=== PATIENT | male | born 1960 | race Caucasian/White ===

== ENCOUNTER 2020-02-28 09:12 | Day surgery (SDC) | payer MEDICAID, SELFPAY ==
[2020-02-28 09:36] VITALS: BP 126/69; PULSE 54; RESP 20; TEMP 36.3; O2SAT 99
[2020-02-28] MEDS: sodium chloride 0.9% 1,000 ML 30 ML IV (09:39)
--- NOTE | 2020-02-28 09:47 | ANES.PREANE2 ---
Pre-Anesthetic Assessment Pre-Anesthetic Assessment: Height/Weight: Height 1.57 m Weight 54.885 kg Temp Pulse Resp BP Pulse Ox 97.4 F L 54 L 20 H 126/69 99 02/28/20 09:36 02/28/20 09:36 02/28/20 09:36 02/28/20 09:36 02/28/20 09:36 Preop Diagnosis: t Proposed Procedure: Operation Date: 02/28/20 10:00 Proposed Procedures p EGD 35884 R13.10(Not Applicable) - Nestor Salmeron MD Familial anesthetic complications: None Was Beta Artemio taken within 24 hours: N/A Last intake: Intake Last Liquid Date 02/27/20 Last Liquid Time 22:30 Last Solid Date 02/27/20 Last Solid Time 18:00 Social: Social History: Tobacco and No alcohol Exam: Pre-Anes Outpt Exam: alert, oriented x 3, clear to auscultation bilaterally and regular rate & rhythm Airway: Cervical ROM: WNL MP: 3 Dentition: Other (edentulous) Additional comments: full hayden Pulmonary: Pulmonary: Asthma Comments: patient took his inhalers this morning GI: GI: GERD Comments: dysphagia Anesthetic Plan: ASA status: 2 Anesthesia: MAC Risk of > 500 ml blood loss (7ml/kg in children): No Meds/Allergies Current Medications: Current Medications Generic Name Dose Route Start Last Admin Trade Name Freq PRN Reason Stop Dose Admin Sodium Chloride 1,000 mls @ 30 ml s/hr 02/28/20 09:30 02/28/20 09:39 Sodium Chloride 0.9% IV 30 mls/hr .Q24H DAVID Administration PFSH Anesthesia PFSH: Social History (Updated 02/24/20 @ 15:08 by KRISTEN Yuen) Smoking and tobacco status: current every day smoker Alcohol intake: former Adopted: No service: No History of recent travel: No Current gender identity: Male Data Anesthesia Cardiac Studies: No Data to Display
--- NOTE | 2020-02-28 10:26 | W.PM.OPSUD ---
Surgery/Procedure H&P Update DATE OF PROCEDURE: February 28, 2020 DATE H&P PERFORMED: 02/24/20 PREOP DIAGNOSIS: t PLANNED PROCEDURE: Operation Date: 02/28/20 10:00 Proposed Procedures p EGD 20897 R13.10(Not Applicable) - Nestor Salmeron MD
--- NOTE | 2020-02-28 10:31 | ANE.PACU2 ---
Inpatient post-anesthesia follow up: Airway intact: Yes Vital signs: Temperature 97.4 F Pulse Rate 54 Respiratory Rate 20 Blood Pressure 126/69 Pulse Oximetry 99 Oxygen Delivery Me thod Room Air Oxygen Flow Rate Fraction of Inspir ed Oxygen Hydration adequate: Yes Nausea and vomiting: No Pain level: 1 Mental status: Baseline
[2020-02-28 10:34] VITALS: BP 126/69; PULSE 69; RESP 16; TEMP 36.8; O2SAT 99
[2020-02-28 10:40] VITALS: BP 105/63; PULSE 68; RESP 18; O2SAT 99
[2020-03-02 05:40] LABS: H. Pylori / CLO Test Negative
== END 2020-02-28 10:59 | disposition home or self-care (01) ==
PROVIDERS: PCP Internal Medicine; Visit Provider Internal Medicine
PROC: 0DJ08ZZ Inspection of Upper Intestinal Tract, Via Natural or Artificial Opening Endoscopic (ICD-10-PCS; CPT 43235; principal; 2020-02-28 10:00)
DX: R13.10 Dysphagia, unspecified (principal); K29.50 Unspecified chronic gastritis without bleeding; K44.9 Diaphragmatic hernia without obstruction or gangrene; K21.9 Gastro-esophageal reflux disease without esophagitis; F17.210 Nicotine dependence, cigarettes, uncomplicated
CPT/HCPCS: 12345; 43239; 87077; J2704; J7030

== ENCOUNTER → 2024-01-02 13:00 | Outpatient (BNVA) | payer MEDICARE, MEDICAID, SELFPAY | PROVIDERS: PCP Nurse Practitioner; Visit Provider Nurse Practitioner Family | DX: L30.9 Dermatitis, unspecified (principal); L57.0 Actinic keratosis; L57.8 Other skin changes due to chronic exposure to nonionizing radiation; D22.5 Melanocytic nevi of trunk; L81.4 Other melanin hyperpigmentation | CPT/HCPCS: 11102; 17000; 99203 ==

== ENCOUNTER → 2024-04-26 08:15 | Outpatient (BNVA) | payer MEDICARE, MEDICAID, SELFPAY | PROVIDERS: PCP Nurse Practitioner; Visit Provider Nurse Practitioner Family | DX: Q82.8 Other specified congenital malformations of skin (principal); L23.9 Allergic contact dermatitis, unspecified cause; L72.0 Epidermal cyst | CPT/HCPCS: 99213 ==

== ENCOUNTER 2024-07-01 17:04 | Inpatient (IN) | payer MEDICARE, MEDICAID, SELFPAY ==
[2024-07-01] VITALS (57 sets, daily range): BP systolic 97–165; BP diastolic 58–92; PULSE 93–122; RESP 16–34; TEMP 37.7–38.1; O2SAT 91–98; BMI 21.9; BMI 23.1
--- NOTE | 2024-07-01 17:14 | ECG_ITS ---
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 Measurements Intervals [place] Rate: 119 P: 71 MA: 170 QRS: 72 QRSD: 109 T: 10 QT: 324 QTc: 456 Interpretive Statements SINUS TACHYCARDIA INCOMPLETE RIGHT BUNDLE BRANCH BLOCK [90+ ms QRS DURATION, TERMINAL R IN V1/V2, 40+ ms S IN I/aVL/V4/V5/V6] ABNORMAL RHYTHM ECG No previous ECG available for comparison Electronically Signed On 07-01-2024 19:26:39 [employer] DEVEL[employer] by Pavel Prescott M.D. [id number]
--- NOTE | 2024-07-01 17:14 | XRR_ITS ---
PROCEDURE INFORMATION: Exam: XR Chest Exam date and time: 07/01/2024 5:29 PM Age: 63 years old Clinical indication: Shortness of breath; Additional info: clarita LENZ TECHNIQUE: Imaging protocol: Radiologic exam of the chest. Views: 2 views. COMPARISON: No relevant prior studies available. FINDINGS: Lungs: No focal consolidation. Pleural spaces: No evidence of pneumothorax. No evidence of pleural effusion. Heart/Mediastinum: Cardiomediastinal silhouette is within normal limits. Bones/joints: No evidence of acute osseous abnormality. XR/XR chest 2V* [id number] IMPRESSION: 1. No acute cardiopulmonary abnormality.
--- NOTE | 2024-07-01 17:19 | ED_ITS ---
HPI - COVID 2 General: Chief Complaint: COVID symptoms Stated Complaint: Covid positive shortness of breath Time Seen by Provider: 07/01/24 17:05 Source: patient and EMS Mode of arrival: EMS Limitations: no limitations Triage information: Has fever, cough or shortness of breath . Exposure to COVID + person last 14 days History of Present Illness: Patient is a 63-year-old male presenting to the emergency department by ambulance for shortness of breath worsening throughout the day. Last night states he was started have symptoms but this morning his shortness of breath worsened, he took a home COVID test along with his and both of them tested positive. He reports to me history of COPD and asthma, has been using nebulized budesonide treatments with not much relief throughout the day. He also is noting that he is starting to have gradually worsening central, burning chest pain that does not radiate. He does not report to me any cardiac history. He is febrile at time of examination, and tachycardic. EMS stated that he was 85% SpO2 on room air on their arrival, he was placed on 4 L and was brought up to 95. He is denying any peripheral edema, recent surgery, history of blood clots, nausea/vomiting/diarrhea, or other symptoms. He is noting some chills at this time as well as a nonproductive cough. He does not normally use oxygen at home. MD complaint: known COVID positive Prior covid testing: yes, results known Prior testing date: 07/01/24 COVID 19 common symptoms: positive chills, non-productive cough and dyspnea; negative fever(s), fatigue, body aches, headache(s), throat pain, nausea, vomiting or diarrhea COVID 19 other sytmptoms: positive chest pain and requiring oxygen Onset (ago): day(s) Severity: moderate COVID Results: 2 Coronavirus (PCR) Positive (Negative) A 07/01/24 17:31 Related Data Home Medications Medication Instructions Recorded Confirmed cholecalciferol (vitamin D3) 25 50 mcg PO DAILY 02/24/20 02/26/20 mcg (1,000 unit) capsule ipratropium 20 mcg-albuterol 100 2 puff inhalation DIRECTED PRN 02/24/20 02/26/20 mcg/actuation mist for inhalation Shortness Of Breath (Combivent Respimat) loratadine 10 mg capsule 10 mg PO DAILY 02/24/20 02/26/20 budesonide 0.5 mg/2 mL suspension 0.5 mg inhalation DAILY 02/26/20 02/26/20 for nebulization Previous Rx's Medication Instructions Recorded pantoprazole 40 mg tablet,delayed 40 mg PO BID #0 tabs 02/28/20 release Allergies Allergy/AdvReac Type Severity Reaction Status Date / Time No Known Allergies Allergy Verified 02/24/20 15:00 Review of Systems 2 General: Reports: 10 or more systems reviewed and unremarkable except in HPI and below Const: Reports: chills; Denies: fever(s), body aches or fatigue Eyes: Denies: change in vision ENMT: Denies: throat pain, ear or mastoid pain or nasal discharge Card: Reports: chest pain and dyspnea on exertion; Denies: palpitations, edema, orthopnea or leg pain with exertion Resp: Reports: dyspnea, non-productive cough and wheezing; Denies: hemoptysis GI: Denies: abdominal pain, nausea, vomiting, diarrhea or constipation : Denies: flank pain, difficulty urinating, dysuria or urinary frequency Musc: Denies: neck pain, back pain or joint pain Skin/Breast: Denies: rash Neuro: Denies: headache(s), numbness in extremities or weakness in extremities PFSH ED 2 PFSH: Social History Smoking and tobacco/nicotine status: current every day tobacco/nicotine user Alcohol intake: former Adopted: No service: No Current gender identity: Male Physical Exam 2 Const: COMMON NORMALS: patient oriented x3 and no limitations GENERAL APPEARANCE: cooperative and well developed ORIENTATION/CONSCIOUSNESS: Yes awake HENMT: COMMON NORMALS: normocephalic, atraumatic and hearing grossly normal bilaterally HEAD & SCALP: normocephalic and atraumatic Eye: COMMON NORMALS: Equal, round and reactive pupils present, EOMs intact bilaterally and conjunctivae normal CONJUNCTIVA: Yes conjunctivae normal P UPIL: Yes Equal, round and reactive pupils present Neck/C-Spine: COMMON NORMALS: full ROM, supple and no JVD Chest: COMMONS NORMALS: normal palpation of entire chest wall Resp: COMMON NORMALS: No retractions and No use of accessory muscles EFFORT & INSPECTION: Yes able to speak in complete sentences, Yes symmetric chest movement, Yes tachypneic, Yes respiratory distress (Mild) and Yes Actively coughing non-productive AUSCULTATION: wheezes expiratory wheezes, inspiratory wheezes and throughout Cardio: COMMON NORMALS: no JVD, regular rhythm, No clicks present (Cardio), No murmurs present (Cardio) and No rub (Cardio) RATE: tachycardic RHYTHM: r egular rhythm GI: COMMON NORMALS: Normal to inspection, nondistended, normoactive bowel sounds present, Soft to palpation and non-tender AUSCULTATION: Yes normoactive bowel sounds PALPATION: Yes Soft to palpation RECTAL EXAM: Yes deferred Extremity: COMMON NORMALS: normal to inspection, full ROM, no calf tenderness and no pedal edema NARRATIVE EXTREMITY EXAM: Cap refill slightly greater than 3 seconds Neuro: COMMON NORMALS: patient oriented x3 Psych: COMMON NORMALS: mental status grossly normal and Normal thought process present THOUGHT PROCESS: Normal thought process present Skin: COMMON NORMALS: no rashes or lesions noted GENERAL SKIN EXAM: no rashes or lesions noted Course 2 ED course: PERC score of 3 Vital Signs: Vital signs: Vital Signs Temperature 100.5 F H 07/01/24 17:07 Pulse Rate 108 H 07/01/24 18:58 Respiratory Rate 18 07/01/24 18:58 Blood Pressure 105/58 07/01/24 18:58 Pulse Oximetry 93 07/01/24 18:58 Oxygen Delivery Me thod Nasal Cannula 07/01/24 18:58 Oxygen Flow Rate 2 07/01/24 18:58 MDM - COVID Medical Decision Making Patient has a history of COPD, does not require home O2. He is COVID-positive at home as well as here in the emergency department. Arrived with EMS, then reporting he was hypoxic in the low to mid 80s on room air, he has been on 3 to 4 L since. He has been tachycardic throughout ED stay, however he reports to me he has done numerous breathing treatments today and his tachycardia could be secondary to the steroids. However we ruled out pulmonary embolus with CTA, potentially may be some developing bronchopneumonia. His troponin and EKG, aside from the sinus tachycardia, was unremarkable. Rest of his blood work unremarkable including nondiagnostic BNP. He did not seem fluid overloaded on physical exam. Spoke with Dr. Santana who agrees to accept the patient for observation, discussed this plan with patient who agrees and all other questions and concerns were addressed. Dr. Ta putting in admit orders at this time. Patient currently on 2 L nasal cannula 93% SpO2. Lab Data 07/01/24 17:33 07/01/24 17:33 Radiology Impressions Chest X-Ray 07/01/24 17:14 IMPRESSION: 1. No acute cardiopulmonary abnormality. Chest CTA 07/01/24 17:46 IMPRESSION: 1. No evidence of central PE or acute aortic abnormality. There is hypodensity within a left upper lobe subsegmental branch, which may be secondary to motion degradation. Subsegmental PE would be difficult to exclude in this region. If warranted, follow-up exam in 24-48 hours may be helpful to reassess. 2. Right middle and bilateral lower lobe mucous plugging with possible aspiration pneumonitis or developing bronchopneumonia in the right middle lobe. 3. Mild wall thickening of the mid-distal esophagus compatible with esophagitis in the proper clinical setting. Consider follow-up outpatient GI evaluation. Laboratory Results WBC 8.55 10^3/uL (3.29-11.43) 07/01/24 17:33 RBC 5.05 10^6/uL (3.85-5.65) 07/01/24 17:33 Hgb 16.00 g/dL (11.27-16.99) 07/01/24 17:33 Hct 46.5 % (37-53) 07/01/24 17:33 MCV 92.1 fl (82-101) 07/01/24 17:33 MCH 31.7 pg (27-33) 07/01/24 17:33 MCHC 34.4 g/dL (30-55) 07/01/24 17:33 RDW 12.5 % (12.1-15.1) 07/01/24 17:33 Plt Count 157 10^3/cmm (157-399) 07/01/24 17:33 MPV 10.3 fL (7.4-10.4) 07/01/24 17:33 Neut % (Auto) 88.0 % 07/01/24 17:33 Lymph % (Auto) 6.9 % 07/01/24 17:33 Garvin % (Auto) 4.7 % 07/01/24 17:33 Eos % (Auto) 0.1 % 07/01/24 17:33 Baso % (Auto) 0.1 % 07/01/24 17:33 Neut # (Auto) 7.52 10^3/uL (1.8-7.7) 07/01/24 17:33 Lymph # (Auto) 0.6 10^3/uL (0.8-4.8) L 07/01/24 17:33 Garvin # (Auto) 0.4 10^3/uL (0.2-0.9) 07/01/24 17:33 Eos # (Auto) 0.0 10^3/uL (0.0-0.8) 07/01/24 17:33 Baso # (Auto) 0.0 10^3/uL (0.0-0.1) 07/01/24 17:33 Nucleated RBC % (auto) 0 % 07/01/24 17:33 Nucleated RBCs # 0.0 /100WBC 07/01/24 17:33 Specimen Type Arterial 07/01/24 17:37 Sample Site Brachial, right 07/01/24 17:37 ABG pH 7.42 (7.35-7.45) 07/01/24 17:37 ABG pCO2 34.2 mmHg (35-45) L 07/01/24 17:37 ABG pO2 50.3 mmHg (80.0-100.0) L 07/01/24 17:37 ABG PO2/FiO2 Ratio 239 07/01/24 17:37 ABG HCO3 22.0 mmol/L (22-26) 07/01/24 17:37 ABG O2 Saturation 86.9 07/01/24 17:37 ABG Base Excess -1.8 mmol/L (-2.0-2.0) 07/01/24 17:37 Martin Test N/a 07/01/24 17:37 A-a O2 Gradient 7.5 mmHg (5-10) 07/01/24 17:37 Hematocrit 42.5 % (42-52) 07/01/24 17:37 Hgb O2 Saturation 85.0 % (95-100) L 07/01/24 17:37 Carboxyhemoglobin 1.2 %THgb (0.4-20.1) 07/01/24 17:37 Methemoglobin 0.9 % (0.4-1.5) 07/01/24 17:37 Total Hemoglobin 13.9 g/dL (14-18) L 07/01/24 17:37 Sodium 136.0 mmol/L (131-143) 07/01/24 17:37 Potassium 3.6 mmol/L (3.5-5.0) 07/01/24 17:37 Glucose 108.0 mg/dL (70-115) 07/01/24 17:37 Ionized Calcium 1.2 mmol/L (1.1-1.4) 07/01/24 17:37 O2 Delivery Device Room air 07/01/24 17:37 FiO2 21.0 % 07/01/24 17:37 Meteorological Observer ID Amh 07/01/24 17:37 Sodium 139 mmol/L (136-145) 07/01/24 17:33 Potassium 4.2 mmol/L (3.5-5.1) 07/01/24 17:33 Chloride 98 mmol/L (98-107) 07/01/24 17:33 Carbon Dioxide 24 mmol/L (22-29) 07/01/24 17:33 Anion Gap 21.2 (5-19) H 07/01/24 17:33 BUN 9 mg/dL (8-23) 07/01/24 17:33 Creatinine 0.7 mg/dL (0.7-1.2) 07/01/24 17:33 GFR Calculation 113.2 mL/min (90-130) 07/01/24 17:33 Glucose 107 mg/dL (65-115) 07/01/24 17:33 Calculated Osmolality 287 mOsm/kg (285-295) 07/01/24 17:33 Calcium 9.7 mg/dL (8.5-10.5) 07/01/24 17:33 Total Bilirubin 0.6 mg/dL (0.15-1.2) 07/01/24 17:33 AST 21 U/L (0-40) 07/01/24 17:33 ALT 22 U/L (0-41) 07/01/24 17:33 Alkaline Phosphatase 97 U/L (40-130) 07/01/24 17:33 Troponin T Baseline 9 ng/L (0-15) 07/01/24 17:33 NT-Pro-B Natriuret Pep 298 pg/mL (0-125) H 07/01/24 17:33 Total Protein 7.7 g/dL (6.6-8.7) 07/01/24 17:33 Albumin 4.9 g/dL (3.5-5.2) 07/01/24 17:33 Globulin 2.8 g/dL (1.3-4.6) 07/01/24 17:33 Coronavirus (PCR) Positive (Negative) A 07/01/24 17:31 Influenza A (PCR) Negative (Negative) 07/01/24 17:31 Influenza Type B (PCR) Negative (Negative) 07/01/24 17:31 RSV (PCR) Negative (Negative) 07/01/24 17:31 2 Coronavirus (PCR) Positive (Negative) A 07/01/24 17:31 All radiology interpretation(s) finalized by discharge EKG Data EKG 1: I personally reviewed and interpreted this EKG as follows: EKG interpretation date: 07/01/24 EKG interpretation time: 17:29 Prior EKG tracings: not available for review Interpretation: 1729: Sinus tachycardia. Rate 119. No ST segment elevation. 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
[2024-07-01] MEDS: acetaminophen 325 mg Tablet 650 MG PO (17:22)
[2024-07-01] MEDS: sodium chloride 0.9% 1,000 ML 999 ML IV (17:24)
[2024-07-01 17:41] LABS: Basophils % 0.1 %; Eosinophils % 0.1 %; Hematocrit 46.5 % (37-53); Lymphocytes # 0.6 10^3/uL (0.8-4.8); Lymphocytes % 6.9 %; Mean Corpuscular HGB Conc 34.4 g/dL (30-55); Mean Corpuscular Hemoglobin 31.7 pg (27-33); Mean Corpuscular Volume 92.1 fl (82-101); Mean Platelet Volume 10.3 fL (7.4-10.4); Monocytes # 0.4 10^3/uL (0.2-0.9); Monocytes % 4.7 %; Neutrophils # 7.52 10^3/uL (1.8-7.7); Nucleated Red Blood Cells % 0 %; Platelet Count 157 10^3/cmm (157-399); Red Blood Count 5.05 10^6/uL (3.85-5.65); Red Cell Distribution Width 12.5 % (12.1-15.1); White Blood Count 8.55 10^3/uL (3.29-11.43)
--- NOTE | 2024-07-01 17:46 | CTR_ITS ---
PROCEDURE INFORMATION: Exam: CTA Chest With Contrast Exam date and time: 07/01/2024 6:32 PM Age: 63 years old Clinical indication: Shortness of breath; Additional info: Tachy, SOB, covid + TECHNIQUE: Imaging protocol: Computed tomographic angiography of the chest with contrast. Exam focused on the arteries. 3D rendering (Not supervised by radiologist): MIP and/or 3D reconstructed images were created by the technologist. Radiation optimization: All CT scans at this facility use at least one of these dose optimization techniques: automated exposure control; mA and/or kV adjustment per patient size (includes targeted exams where dose is matched to clinical indication); or iterative reconstruction. Contrast material: OMNI 350; Contrast volume: 100 ml; Contrast route: INTRAVENOUS (IV); COMPARISON: CR (CHEST, ) 07/01/2024 5:29 PM RADIATION DOSE METRICS: Total DLP (mGy-cm): 208.74 FINDINGS: Pulmonary arteries: Evaluation for pulmonary thromboembolism is limited beyond the segmental level due to respiratory motion. No evidence of central PE. There is hypodensity within a left upper lobe subsegmental branch, which may be secondary to motion degradation. Subsegmental PE would be difficult to exclude in this region (image 70 of series 7). Aorta: No evidence of aneurysmal dilatation or dissection of the thoracic aorta. Thyroid: Grossly unremarkable. Lungs: No focal consolidation. Extensive mucous plugging of the right middle and both lower lobes. Mild ground-glass in the medial right middle lobe, nonspecific and can be seen with aspiration pneumonitis or developing bronchopneumonia. Pleural spaces: No evidence of pleural effusion. No pneumothorax. Heart: No cardiomegaly. No pericardial effusion. Mediastinal space: No evidence of mediastinal mass, fluid collection or hematoma. Mild wall thickening of the mid-distal esophagus. Lymph nodes: No mediastinal or hilar adenopathy. Bones/joints: No evidence of acute fracture or aggressive osseous lesion. Soft tissues: No evidence of fluid collection or hematoma in the superficial soft tissues. Other findings: No evidence of acute abnormality in the upper abdomen. CT/CT angio chest PE protcl [id number] IMPRESSION: 1. No evidence of central PE or acute aortic abnormality. There is hypodensity within a left upper lobe subsegmental branch, which may be secondary to motion degradation. Subsegmental PE would be difficult to exclude in this region. If warranted, follow-up exam in 24-48 hours may be helpful to reassess. 2. Right middle and bilateral lower lobe mucous plugging with possible aspiration pneumonitis or developing bronchopneumonia in the right middle lobe. 3. Mild wall thickening of the mid-distal esophagus compatible with esophagitis in the proper clinical setting. Consider follow-up outpatient GI evaluation.
[2024-07-01 17:48] LABS: ABG PCO2 34.2 mmHg (35-45); ABG PH Result 7.42 (7.35-7.45); Alveolar-Arterial Oxygen Gradi 7.5 mmHg (5-10); Arterial Blood Gas Hematocrit 42.5 % (42-52); Base Excess ABG -1.8 mmol/L (-2.0-2.0); Blood Gas Operator Identificat AMH; Blood Gas Sample Site Brachial, right; Blood Gas Sample Type Arterial; Carboxyhemoglobin 1.2 %THgb (0.4-20.1); Ionized Calcium Level - ABG 1.2 mmol/L (1.1-1.4); Methemoglobin 0.9 % (0.4-1.5); Oxygen Device ROOM AIR; Oxygen Saturation ABG 86.9; PO2 ABG 50.3 mmHg (80.0-100.0); PO2 FiO2 Ratio Arterial Blood 239; Potassium Level - ABG 3.6 mmol/L (3.5-5.0); Total Hemoglobin 13.9 g/dL (14-18)
[2024-07-01 18:01] LABS: Troponin(5th) Baseline 9 ng/L (0-15)
[2024-07-01 18:10] LABS: Alanine Aminotransferase 22 U/L (0-41); Albumin Level 4.9 g/dL (3.5-5.2); Alkaline Phosphatase 97 U/L (40-130); Anion Gap 21.2 (5-19); Aspartate Amino Transferase 21 U/L (0-40); Blood Urea Nitrogen 9 mg/dL (8-23); Calcium 9.7 mg/dL (8.5-10.5); Carbon Dioxide 24 mmol/L (22-29); Chloride 98 mmol/L (98-107); Creatinine Clr Calc Pharmacy 71.0057; Globulin 2.8 g/dL (1.3-4.6); Glomerular Filtration Rate 113.2 mL/min (90-130); Glucose 107 mg/dL (65-115); NT Pro B Type Natriuretic Pept 298 pg/mL (0-125); Osmolality Calculated 287 mOsm/kg (285-295); Potassium 4.2 mmol/L (3.5-5.1); Sodium 139 mmol/L (136-145); Total Bilirubin 0.6 mg/dL (0.15-1.2); Total Protein 7.7 g/dL (6.6-8.7)
[2024-07-01 18:17] LABS: Influenza A NEGATIVE (Negative); Influenza B NEGATIVE (Negative); Respiratory Syncytial Virus Ce NEGATIVE (Negative)
[2024-07-01 18:19] LABS: Covid PCR Positive (Negative)
[2024-07-01] MEDS: iohexol 350 mg/mL 500 mL Btl (per mL) IV (18:33)
--- NOTE | 2024-07-01 19:15 | P.HP_ITS ---
Providers/Chief Complaint 2 Primary Care Provider: LARRY May Chief Complaint: Covid positive shortness of breath History of Present Illness Mahamed Stone is a 63 year old male with a past medical history significant for tobacco use disorder and asthma/COPD who presents to the emergency room with shortness of breath x 2 days. Patient reports symptoms started last night and worsened into today. He endorses associated cough, described as nonproductive. Exertion worsens symptoms and rest improves shortness of breath. He tried his home Combivent and budesonide without significant improvement in symptomatology. Reports home COVID test was positive. Denies prior known history of COVID infections. Reports his spouse at home is having similar symptoms but to a lesser degree. Per EMS report, patient was found to be hypoxic on room air. Patient denies prior home oxygen needs. In the emergency department, patient was found to be COVID-positive. He was found to be tachycardic and febrile. He is found to require oxygen. CT PE was negative for pulmonary embolism, but but revealed findings concerning for aspiration pneumonitis versus developing bronchopneumonia in right lung. Review of Systems 2 Narrative: A complete review of systems was obtained and is negative except as stated in HPI. Medications/Allergies Home Medications Medication Instructions Recorded Confirmed Last Taken Type cholecalciferol (vitamin D3) 25 50 mcg PO DAILY 02/24/20 02/26/20 02/27/20 History mcg (1,000 unit) capsule ipratropium 20 mcg-albuterol 100 2 puff inhalation DIRECTED PRN 02/24/20 02/26/20 02/28/20 History mcg/actuation mist for inhalation Shortness Of Breath (Combivent Respimat) loratadine 10 mg capsule 10 mg PO DAILY 02/24/20 02/26/20 02/27/20 History budesonide 0.5 mg/2 mL suspension 0.5 mg inhalation DAILY 02/26/20 02/26/20 02/28/20 History for nebulization pantoprazole 40 mg tablet,delayed 40 mg PO BID #0 tabs 02/28/20 02/26/20 02/27/20 Rx release Allergies Allergy/AdvReac Type Severity Reaction Status Date / Time No Known Allergies Allergy Verified 02/24/20 15:00 PFSH Acute 2 PFSH: Medical History Odynophagia Surgical History (Updated 07/01/24 @ 22:56 by Domingo Santana MD) History of esophagogastroduodenoscopy (EGD) Social History Smoking and tobacco/nicotine status: current every day tobacco/nicotine user Alcohol intake: former Adopted: No service: No Current gender identity: Male Vitals/I&O/Wt Last Vital Signs Temp 100.5 F H 07/01/24 17:07 Pulse 108 H 07/01/24 18:58 Resp 18 07/01/24 18:58 BP 105/58 07/01/24 18:58 Pulse Ox 93 07/01/24 18:58 O2 Del Method Nasal Cannula 07/01/24 18:58 O2 Flow Rate 2 07/01/24 18:58 Weight last 48 hrs Weight 54.431 kg Physical Exam 2 Narrative: General: Patient is awake. Appears fatigued but pleasant. Febrile. Head: Normocephalic. Atraumatic. EOM intact. Dry mucous membranes. Neck: No JVD. Cardiovascular: Regular rhythm. No gallops. No murmurs. Tachycardic Lungs: Moderate air movement throughout bilateral lung tineo. Very faint end expiratory wheezing. Skin: No jaundice. No rashes. Abdomen: Normal bowel sounds, abdomen soft and nontender. Genito Urinary: Genital exam not performed since complaints not related. Rectal: Rectal exam not performed since no symptoms indicated blood loss. Extremities: No cyanosis or clubbing. Musculoskeletal: No swollen or erythematous joints. Neurological: Moves all 4 extremities. No myoclonus. Data 07/01/24 17:33 07/01/24 17:33 A&P Assessment and plan (1) Hypoxia: Acute hypoxic respiratory insufficiency Supplemental oxygen support for SpO2 goal of 90 to 96% Treat underlying COVID-19 and pneumonia Treat underlying reactive airway flare Encourage pulmonary toilet Supportive care (2) COVID-19: Take appropriate precautions Start dexamethasone Remdesivir ordered (3) Pneumonia: Right sided community-acquired bronchopneumonia Check procal and CRP Check bacterial antigens Start ceftriaxone and azithromycin (4) COPD (chronic obstructive pulmonary disease): Asthma/COPD overlap syndrome with acute exacerbation Starting systemic steroids as noted above Budesonide nebs Scheduled DuoNebs (5) Tobacco abuse: Patient would benefit from tobacco cessation Plan DVT prophylaxis: Lovenox CODE STATUS: Full code Attestations 2 Medical Necessity Statement*: Patient presents with respiratory symptoms, found to have COVID-19 infection and suspected community-acquired pneumonia complicated by acute COPD exacerbation and hypoxia with expected hospitalization not to cross 2 midnights for IV steroids, IV antibiotics, breathing treatments and supportive care. Coding Level of Care Code Acute Code for [facility] Diagnoses Hypoxia R09.02 COVID-19 U07.1 Pneumonia J18.9 COPD (chronic obstructive pulmonary disease) J44.9 Tobacco abuse Z72.0
[2024-07-01 20:08] LABS: Troponin 5 2HR 10.34 ng/L (0-15); Troponin 5 2HR Delta 1.34 ABS# (0-10)
[2024-07-02] VITALS (14 sets, daily range): BP systolic 103–119; BP diastolic 59–81; PULSE 79–119; RESP 14–22; TEMP 36.8–37.6; O2SAT 94–97; BMI 23.0
[2024-07-02] MEDS: AZITHROMYCIN ADD-Vantage 500 MG in 0.9% NaCl ADD-Vantage 250 ML 250 MG IV (00:09)
[2024-07-02] MEDS: enoxaparin 40 mg/0.4 mL Syringe SUBCUT ×2 (00:10→22:56)
[2024-07-02] MEDS: cefTRIAXone 1,000 mg SDV 1000 MG IVP ×2 (00:10→22:57)
[2024-07-02] MEDS: morphine 4 mg/mL SDV 1 mL 2 MG IVP (00:19)
[2024-07-02 00:40] LABS: Troponin 5 6HR 12.57 ng/L (0-15); Troponin 5 6HR Delta 3.57 ng/L (0-12)
[2024-07-02 00:49] LABS: Procalcitonin 0.14 ng/mL (0-0.5)
[2024-07-02] MEDS: remdesivir 200 MG in sodium chloride 0.9% (100 ml) 60 ML 100 MG IV ×2 (01:03→01:24)
--- NOTE | 2024-07-02 01:26 | PC.NURSE ---
THIS RN HAD TO OVERRIDE 100ML SODIUM CHLORIDE AND 200MG REMDESVIR TO FULFILL THE MD ORDER FOR INITIAL DOSE. PT ONLY RECIEVED ONE DOSE OF 200MG REMDESIVIR.
[2024-07-02] MEDS: ipratropium-albuterol 3 mL Neb INHALATION ×2 (03:14→08:57)
[2024-07-02 06:12] LABS: Basophils % 0.2 %; Hematocrit 38.3 % (37-53); Lymphocytes # 0.6 10^3/uL (0.8-4.8); Lymphocytes % 5.4 %; Mean Corpuscular HGB Conc 34.7 g/dL (30-55); Mean Corpuscular Volume 92.3 fl (82-101); Mean Platelet Volume 9.9 fL (7.4-10.4); Monocytes # 0.7 10^3/uL (0.2-0.9); Monocytes % 6.3 %; Neutrophils # 9.65 10^3/uL (1.8-7.7); Neutrophils % 87.8 %; Nucleated Red Blood Cells % 0 %; Platelet Count 136 10^3/cmm (157-399); Red Blood Count 4.15 10^6/uL (3.85-5.65); Red Cell Distribution Width 12.5 % (12.1-15.1); White Blood Count 10.98 10^3/uL (3.29-11.43)
[2024-07-02 06:36] LABS: Alanine Aminotransferase 18 U/L (0-41); Albumin Level 3.8 g/dL (3.5-5.2); Alkaline Phosphatase 75 U/L (40-130); Anion Gap 14.7 (5-19); Aspartate Amino Transferase 21 U/L (0-40); Blood Urea Nitrogen 9 mg/dL (8-23); Calcium 8.7 mg/dL (8.5-10.5); Carbon Dioxide 23 mmol/L (22-29); Chloride 106 mmol/L (98-107); Creatinine Clr Calc Pharmacy 72.4234; Globulin 2.5 g/dL (1.3-4.6); Glucose 108 mg/dL (65-115); Magnesium 1.5 mg/dL (1.7-2.3); Osmolality Calculated 289 mOsm/kg (285-295); Potassium 3.7 mmol/L (3.5-5.1); Sodium 140 mmol/L (136-145); Total Bilirubin 0.3 mg/dL (0.15-1.2); Total Protein 6.3 g/dL (6.6-8.7)
[2024-07-02] MEDS: dexamethasone 10 mg/mL INJ 6 MG IVP (08:50)
[2024-07-02] MEDS: budesonide 0.5 mg/2 mL Neb INHALATION ×2 (08:57→19:39)
--- NOTE | 2024-07-02 10:23 | PC.CHAP ---
Pastoral Care Encounter/Spiritual Assessment Type of Contact [] Declined manager operations visit [] Patient/Family/Request visit [] Outpatient visit [] Follow-up visit [] Physician referral [] Code/Alert [] Routine visit [] Staff referral [] Actively dying [] Patient sleeping [] Family support [] [] Out of room [] Palliative care [] [] Receiving care in room [] Pre-surgical visit [] Trauma [] Long length of stay [] ICU visit [x] Other:Contact precautions. No visit. Relational/Emotional Strength [] Patient feels connected with others/family/visitors/staff [] Distress [] Loneliness/isolation [] Abandonment Spirituality of Patient [] Person of [place] [] Attends Oriental Orthodox of their [place] [] Believes in Prayer [] Reads Bible or Evangelical materials [] There are Spiritual issues to be addressed Cigarette Carton Sealer Interventions [] Prayer [] Active listening [] Non-anxious presence [] Spiritual/emotional support [] Crisis/trauma care [] Spiritual counseling [] Bereavement support [] Provided bereavement packet [] Provided Bible/devotional materials [] Provided toy/stuffed animal, coloring book to patient or family member [] Provided Communion [] Anointing/[place] [] Salvation [] Completed spiritual assessment [] Other: Impact on Illness or Injury [] Angry [] Fearful [] Anxious [] Often cries [] Exhaustion [] Unable to work [] Unable to attend sikhism [] Unable to walk/stand [] Unable to read [] Unable to drive [] Unable to eat/drink [] Unable to sleep [] Unable to be with family [] Patient intubated [] Other: Summary Time spent with patient
--- NOTE | 2024-07-02 14:31 | P.PN_ITS ---
Subjective 2 Subjective: Admitted overnight. H&P labs appreciated. Vitals/I&O/Wt Last Vital Signs Temp 99.6 F 07/02/24 11:48 Pulse 101 H 07/02/24 11:48 Resp 17 07/02/24 11:48 BP 103/59 07/02/24 11:48 Pulse Ox 96 07/02/24 11:48 O2 Del Method Nasal Cannula 07/02/24 11:48 O2 Flow Rate 3 07/02/24 08:55 07/01/24 07/02/24 07/02/24 22:59 06:59 14:59 Intake Total 1385 / 1385 480 / 480 Balance 1385 / 1385 480 / 480 Weight last 48 hrs Weight 57.153 kg Weight 57.289 kg Weight 54.431 kg Physical Exam 2 Narrative: General: Patient is awake. Appears fatigued but pleasant. Febrile. Head: Normocephalic. Atraumatic. EOM intact. Dry mucous membranes. Neck: No JVD. Cardiovascular: Regular rhythm. No gallops. No murmurs. Tachycardic Lungs: Moderate air movement throughout bilateral lung tineo. Very faint end expiratory wheezing. Skin: No jaundice. No rashes. Abdomen: Normal bowel sounds, abdomen soft and nontender. Genito Urinary: Genital exam not performed since complaints not related. Rectal: Rectal exam not performed since no symptoms indicated blood loss. Extremities: No cyanosis or clubbing. Musculoskeletal: No swollen or erythematous joints. Neurological: Moves all 4 extremities. No myoclonus. Data 07/02/24 06:00 07/02/24 06:00 Micro: Microbiology 07/02/24 06:32 Bacterial Antigens - Final Urine,Clean Catch A&P Assessment and plan (1) Hypoxia: Acute hypoxic respiratory insufficiency in setting of COVID-19 pneumonia leading to COPD exacerbation. Oxygen supplementation keeping saturation over 90%. Supportive care. (2) COVID-19: Hypoxia secondary to COVID-19 pneumonia: Mild to moderate disease. Oxygen supplementation keeping saturation over 90 %. Dexamethasone 6 mg daily. Remdesivir to finish a 5-day course. Ipratropium, Xopenex every 6 hour, budesonide twice daily Pulmonary toilet with incentive spirometry flutter valve. We will monitor inflammatory markers including CRP every 48 hours. CTA negative for PE. Check sputum culture. Procalcitonin negative, urine bacterial antigen negative. Check blood cultures. (3) Pneumonia: Concern for right-sided possible bronchopneumonia. For now continue with treatment for community-acquired pneumonia with IV ceftriaxone and oral azithromycin. Plan for azithromycin for 3 days. Check MRSA swab. If positive will add linezolid. (4) COPD (chronic obstructive pulmonary disease): As above. (5) Tobacco abuse: Patient would benefit from tobacco cessation. Nicotine patch as needed Plan DVT prophylaxis: Lovenox CODE STATUS: Full code Regular diet Protonix for PUD prophylaxis Attestations 2 Medical Necessity Statement*: Requires further hospitalization for management of hypoxic respiratory failure in setting of COVID-19 needed COPD exacerbation, community-acquired pneumonia Diagnoses Hypoxia R09.02 COVID-19 U07.1 Pneumonia J18.9 COPD (chronic obstructive pulmonary disease) J44.9 Tobacco abuse Z72.0
[2024-07-02 15:07] LABS: Estmated Average Glucose 108; Hemoglobin A1C 5.4 % (4.0-6.0)
[2024-07-02 15:23] LABS: Iron 12 ug/dL (59-158); Percent Saturation 5.7 % (20-50); Thyroid Stimulating Hormone 1.13 uIU/mL (0.27-4.20); Total Iron Binding Capacity 208 mcg/dl; Unsaturated Iron Binding 196 ug/dL (112-347); Vitamin B12 789 pg/mL (232-1245)
[2024-07-02] MEDS: remdesivir 100 MG in sodium chloride 0.9% (100 ml) 80 ML IV (18:16)
[2024-07-02] MEDS: ipratropium 0.5 mg/2.5 mL Neb INHALATION (19:40)
[2024-07-02] MEDS: levalbuterol 0.63 mg/3 mL Neb INHALATION (19:40)
[2024-07-02 20:25] LABS: MRSA PCR OZH (swab) MRSA Detected (Negative)
[2024-07-03] VITALS (13 sets, daily range): BP systolic 101–115; BP diastolic 59–67; PULSE 61–89; RESP 14–18; TEMP 36.7–37; O2SAT 94–97
[2024-07-03] MEDS: ipratropium 0.5 mg/2.5 mL Neb INHALATION ×3 (03:20→13:31)
[2024-07-03] MEDS: levalbuterol 0.63 mg/3 mL Neb INHALATION ×3 (03:20→13:31)
[2024-07-03 06:02] LABS: Basophils % 0.1 %; Hematocrit 38.9 % (37-53); Lymphocytes % 9.3 %; Mean Corpuscular HGB Conc 33.2 g/dL (30-55); Mean Corpuscular Hemoglobin 31.9 pg (27-33); Mean Platelet Volume 9.9 fL (7.4-10.4); Monocytes # 0.5 10^3/uL (0.2-0.9); Monocytes % 4.3 %; Neutrophils # 9.52 10^3/uL (1.8-7.7); Nucleated Red Blood Cells % 0 %; Platelet Count 122 10^3/cmm (157-399); Red Blood Count 4.05 10^6/uL (3.85-5.65); Red Cell Distribution Width 12.4 % (12.1-15.1); White Blood Count 11.07 10^3/uL (3.29-11.43)
[2024-07-03 06:28] LABS: Alanine Aminotransferase 20 U/L (0-41); Albumin Level 3.1 g/dL (3.5-5.2); Alkaline Phosphatase 58 U/L (40-130); Blood Urea Nitrogen 16 mg/dL (8-23); Calcium 8.4 mg/dL (8.5-10.5); Carbon Dioxide 20 mmol/L (22-29); Chloride 106 mmol/L (98-107); Chol HDL Ratio 2.13 mg/dL (1.0-5.00); Cholesterol 85 mg/dL (0-200); Creatinine Clr Calc Pharmacy 72.4234; Globulin 2.6 g/dL (1.3-4.6); Glomerular Filtration Rate 113.2 mL/min (90-130); Glucose 124 mg/dL (65-115); HDL Cholesterol 40 mg/dL (60-100); LDL Cholesterol Calculated 40 mg/dL (50-129); Magnesium 1.7 mg/dL (1.7-2.3); Osmolality Calculated 287 mOsm/kg (285-295); Sodium 137 mmol/L (136-145); Total Bilirubin 0.2 mg/dL (0.15-1.2); Total Protein 5.7 g/dL (6.6-8.7); Triglycerides 25 mg/dL (0-150); VLDL Cholestrol Calculation 5 mg/dL (0-30)
[2024-07-03 06:31] LABS: Anion Gap 15.3 (5-19); Aspartate Amino Transferase 30 U/L (0-40); Potassium 4.3 mmol/L (3.5-5.1)
[2024-07-03] MEDS: pantoprazole DR 40 mg Tablet PO (08:28)
[2024-07-03] MEDS: dexamethasone 10 mg/mL INJ 6 MG IVP (08:28)
[2024-07-03] MEDS: azithromycin 250 mg Tablet 500 MG PO (08:28)
[2024-07-03] MEDS: budesonide 0.5 mg/2 mL Neb INHALATION (08:41)
[2024-07-03 09:33] LABS: Folate Level 4.3 ng/mL (4.5-32.2)
--- NOTE | 2024-07-03 14:28 | P.PN_ITS ---
Subjective 2 Subjective: No acute events overnight. Patient down to 1 to 2 L of oxygen supplementation. States feeling a lot better. Able to ambulate better. Denies any nausea, vomiting, headache. Vitals/I&O/Wt Last Vital Signs Temp 98.6 F 07/03/24 11:35 Pulse 87 07/03/24 13:32 Resp 16 07/03/24 13:32 BP 115/67 07/03/24 11:35 Pulse Ox 94 07/03/24 13:32 O2 Del Method Nasal Cannula 07/03/24 13:32 O2 Flow Rate 2 07/03/24 13:32 07/02/24 07/03/24 07/03/24 22:59 06:59 14:59 Intake Total 340 / 820 240 / 240 Balance 340 / 820 240 / 240 Weight last 48 hrs Weight 57.379 kg Weight 57.153 kg Weight 57.289 kg Weight 54.431 kg Physical Exam 2 Narrative: General: Patient is awake. Appears fatigued but pleasant. Febrile. Head: Normocephalic. Atraumatic. EOM intact. Dry mucous membranes. Neck: No JVD. Cardiovascular: Regular rhythm. No gallops. No murmurs. Tachycardic Lungs: Moderate air movement throughout bilateral lung tineo. Very faint end expiratory wheezing. Skin: No jaundice. No rashes. Abdomen: Normal bowel sounds, abdomen soft and nontender. Genito Urinary: Genital exam not performed since complaints not related. Rectal: Rectal exam not performed since no symptoms indicated blood loss. Extremities: No cyanosis or clubbing. Musculoskeletal: No swollen or erythematous joints. Neurological: Moves all 4 extremities. No myoclonus. Data 07/03/24 05:54 07/03/24 05:54 Micro: Microbiology 07/02/24 06:32 Bacterial Antigens - Final Urine,Clean Catch A&P Assessment and plan (1) Hypoxia: Acute hypoxic respiratory insufficiency in setting of COVID-19 pneumonia leading to COPD exacerbation. Oxygen supplementation keeping saturation over 90%. Supportive care. (2) COVID-19: Hypoxia secondary to COVID-19 pneumonia: Mild to moderate disease. Oxygen supplementation keeping saturation over 90 %. Dexamethasone 6 mg daily. Remdesivir to finish a 5-day course. Ipratropium, Xopenex every 6 hour, budesonide twice daily Pulmonary toilet with incentive spirometry flutter valve. We will monitor inflammatory markers including CRP every 48 hours. CTA negative for PE. Check sputum culture. Procalcitonin negative, urine bacterial antigen negative. Check blood cultures. (3) Pneumonia: Concern for right-sided possible bronchopneumonia. For now continue with treatment for community-acquired pneumonia with IV ceftriaxone and oral azithromycin. Plan for azithromycin for 3 days. Check MRSA swab. If positive will add linezolid. (4) COPD (chronic obstructive pulmonary disease): As above. (5) Tobacco abuse: Patient would benefit from tobacco cessation. Nicotine patch as needed Plan DVT prophylaxis: Lovenox CODE STATUS: Full code Regular diet Protonix for PUD prophylaxis Plan for the day: Continue with supportive treatment with nebulization, incentive spirometry. Continue dexamethasone for over 10 days, remdesivir to finish a 5-day course. Can shorten the course to 3 days if patient is off oxygen in 3 days overall. Follow-up blood culture. Sputum culture still pending. For now continue with treatment for community-acquired pneumonia. MRSA swab positive. Add linezolid. Oxygen supplementation keeping saturation over 90%. Wean accordingly. Attestations 2 Medical Necessity Statement*: Requires further hospitalization for management of hypoxia in setting of COVID, community-acquired pneumonia Diagnoses Hypoxia R09.02 COVID-19 U07.1 Pneumonia J18.9 COPD (chronic obstructive pulmonary disease) J44.9 Tobacco abuse Z72.0
[2024-07-03] MEDS: remdesivir 100 MG in sodium chloride 0.9% (100 ml) 80 ML IV (17:40)
[2024-07-03] MEDS: cefTRIAXone 1,000 mg SDV 1000 MG IVP (22:55)
[2024-07-03] MEDS: enoxaparin 40 mg/0.4 mL Syringe SUBCUT (22:59)
[2024-07-04] VITALS (9 sets, daily range): BP systolic 106–118; BP diastolic 62–70; PULSE 62–84; RESP 16–20; TEMP 36.6–37.1; O2SAT 91–97
[2024-07-04] MEDS: ipratropium 0.5 mg/2.5 mL Neb INHALATION ×2 (02:05→08:30)
[2024-07-04] MEDS: levalbuterol 0.63 mg/3 mL Neb INHALATION ×2 (02:07→08:30)
[2024-07-04 05:27] LABS: Basophils % 0.1 %; Hematocrit 35.9 % (37-53); Lymphocytes # 1.5 10^3/uL (0.8-4.8); Lymphocytes % 12.2 %; Mean Corpuscular HGB Conc 34.5 g/dL (30-55); Mean Corpuscular Hemoglobin 31.7 pg (27-33); Mean Corpuscular Volume 91.8 fl (82-101); Mean Platelet Volume 9.7 fL (7.4-10.4); Monocytes # 0.7 10^3/uL (0.2-0.9); Monocytes % 5.4 %; Neutrophils # 9.81 10^3/uL (1.8-7.7); Nucleated Red Blood Cells % 0 %; Platelet Count 139 10^3/cmm (157-399); Red Blood Count 3.91 10^6/uL (3.85-5.65); Red Cell Distribution Width 12.3 % (12.1-15.1); White Blood Count 11.96 10^3/uL (3.29-11.43)
[2024-07-04 05:50] LABS: Alanine Aminotransferase 24 U/L (0-41); Albumin Level 3.3 g/dL (3.5-5.2); Alkaline Phosphatase 66 U/L (40-130); Aspartate Amino Transferase 26 U/L (0-40); Blood Urea Nitrogen 15 mg/dL (8-23); Calcium 8.6 mg/dL (8.5-10.5); Carbon Dioxide 24 mmol/L (22-29); Chloride 105 mmol/L (98-107); Creatinine Clr Calc Pharmacy 73.2057; Globulin 2.7 g/dL (1.3-4.6); Glomerular Filtration Rate 113.2 mL/min (90-130); Glucose 114 mg/dL (65-115); Osmolality Calculated 290 mOsm/kg (285-295); Sodium 139 mmol/L (136-145); Total Bilirubin 0.2 mg/dL (0.15-1.2)
[2024-07-04 05:54] LABS: Magnesium 1.8 mg/dL (1.7-2.3)
[2024-07-04] MEDS: pantoprazole DR 40 mg Tablet PO (08:04)
[2024-07-04] MEDS: azithromycin 250 mg Tablet 500 MG PO (08:04)
[2024-07-04] MEDS: dexamethasone 10 mg/mL INJ 6 MG IVP (08:04)
[2024-07-04] MEDS: budesonide 0.5 mg/2 mL Neb INHALATION (08:30)
--- NOTE | 2024-07-04 12:32 | P.DS_ITS ---
Discharge Providers Date of Admission: 07/02/24 07:54 Date of Discharge: July 04, 2024 Attending Provider at Admission: Dominog Santana MD Attending Provider at Discharge: Danilo Johnson MD Primary Care Provider: LARRY May Diagnoses at Discharge Discharge Diagnosis (1) Hypoxia: Status: Acute (2) COVID-19: Status: Acute (3) Pneumonia: Status: Acute (4) COPD (chronic obstructive pulmonary disease): Status: Acute (5) Tobacco abuse: Status: Acute Reason for Visit Reason for Visit: Covid positive shortness of breath Brief History: History as per HPI: Mahamed Stone is a 63 year old male with a past medical history significant for tobacco use disorder and asthma/COPD who presents to the emergency room with shortness of breath x 2 days. Patient reports symptoms started last night and worsened into today. He endorses associated cough, described as nonproductive. Exertion worsens symptoms and rest improves shortness of breath. He tried his home Combivent and budesonide without significant improvement in symptomatology. Reports home COVID test was positive. Denies prior known history of COVID infections. Reports his spouse at home is having similar symptoms but to a lesser degree. Per EMS report, patient was found to be hypoxic on room air. Patient denies prior home oxygen needs. Hospital Course Hospital Course He was admitted to the hospital further evaluation and management of hypoxic respiratory failure in setting of COVID-19. He was started on treatment for COVID-19 with remdesivir and dexamethasone along with nebulization treatment. Patient responded well to the treatment and has been back to his baseline oxygen supplementation of being on room air for more than 24 hours. He is been discharged him [place] stable condition on oral dexamethasone for next 7 days, antibiotics with linezolid and Levaquin for next 5 days. He is to continue using his inhalers as before. His Combivent has been changed from as needed to daily for now for next 2 weeks. He has been advised to continue with aggressive pulmonary toilet with incentive spirometry at least for next 1 month. Home O2 evaluation has been done prior to discharge. He should follow-up with his primary care provider within next 1 week. Physical Exam Narrative: General: Patient is awake. Pleasant. Head: Normocephalic. Atraumatic. EOM intact. Dry mucous membranes. Neck: No JVD. Cardiovascular: Regular rhythm. No gallops. No murmurs. Tachycardic Lungs: Moderate air movement throughout bilateral lung tineo. Very faint end expiratory wheezing. Skin: No jaundice. No rashes. Abdomen: Normal bowel sounds, abdomen soft and nontender. Genito Urinary: Genital exam not performed since complaints not related. Rectal: Rectal exam not performed since no symptoms indicated blood loss. Extremities: No cyanosis or clubbing. Musculoskeletal: No swollen or erythematous joints. Neurological: Moves all 4 extremities. No myoclonus. Discharge Data Studies Completed and Pending Completed Studies During Hospitalization Category Date Time Status CTA chest [CT angio chest PE protcl [id number]] Stat Cat Scan 07/01/24 17:46 Completed XR chest 2V* [id number] Urgent Exams 07/01/24 17:14 Completed Pending at discharge Category Date Time Status MAG [Magnesium] AM LABS Lab 07/05/24 04:00 Ordered Sputum Culture and Gram Stain Stat Lab 07/02/24 14:33 Uncollected Radiology Impressions Chest X-Ray 07/01/24 17:14 IMPRESSION: 1. No acute cardiopulmonary abnormality. Chest CTA 07/01/24 17:46 IMPRESSION: 1. No evidence of central PE or acute aortic abnormality. There is hypodensity within a left upper lobe subsegmental branch, which may be secondary to motion degradation. Subsegmental PE would be difficult to exclude in this region. If warranted, follow-up exam in 24-48 hours may be helpful to reassess. 2. Right middle and bilateral lower lobe mucous plugging with possible aspiration pneumonitis or developing bronchopneumonia in the right middle lobe. 3. Mild wall thickening of the mid-distal esophagus compatible with esophagitis in the proper clinical setting. Consider follow-up outpatient GI evaluation. Laboratory Results WBC 11.96 10^3/uL (3.29-11.43) H 07/04/24 05:14 RBC 3.91 10^6/uL (3.85-5.65) 07/04/24 05:14 Hgb 12.40 g/dL (11.27-16.99) 07/04/24 05:14 Hct 35.9 % (37-53) L 07/04/24 05:14 MCV 91.8 fl (82-101) 07/04/24 05:14 MCH 31.7 pg (27-33) 07/04/24 05:14 MCHC 34.5 g/dL (30-55) 07/04/24 05:14 RDW 12.3 % (12.1-15.1) 07/04/24 05:14 Plt Count 139 10^3/cmm (157-399) L 07/04/24 05:14 MPV 9.7 fL (7.4-10.4) 07/04/24 05:14 Neut % (Auto) 82.0 % 07/04/24 05:14 Lymph % (Auto) 12.2 % 07/04/24 05:14 [place] % (Auto) 5.4 % 07/04/24 05:14 Eos % (Auto) 0.0 % 07/04/24 05:14 Baso % (Auto) 0.1 % 07/04/24 05:14 Neut # (Auto) 9.81 10^3/uL (1.8-7.7) H 07/04/24 05:14 Lymph # (Auto) 1.5 10^3/uL (0.8-4.8) 07/04/24 05:14 [place] # (Auto) 0.7 10^3/uL (0.2-0.9) 07/04/24 05:14 Eos # (Auto) 0.0 10^3/uL (0.0-0.8) 07/04/24 05:14 Baso # (Auto) 0.0 10^3/uL (0.0-0.1) 07/04/24 05:14 Nucleated RBC % (auto) 0 % 07/04/24 05:14 Nucleated RBCs # 0.0 /100WBC 07/04/24 05:14 Specimen Type Arterial 07/01/24 17:37 Sample Site Brachial, right 07/01/24 17:37 ABG pH 7.42 (7.35-7.45) 07/01/24 17:37 ABG pCO2 34.2 mmHg (35-45) L 07/01/24 17:37 ABG pO2 50.3 mmHg (80.0-100.0) L 07/01/24 17:37 ABG PO2/FiO2 Ratio 239 07/01/24 17:37 ABG HCO3 22.0 mmol/L (22-26) 07/01/24 17:37 ABG O2 Saturation 86.9 07/01/24 17:37 ABG Base Excess -1.8 mmol/L (-2.0-2.0) 07/01/24 17:37 Martin Test N/a 07/01/24 17:37 A-a O2 Gradient 7.5 mmHg (5-10) 07/01/24 17:37 Hematocrit 42.5 % (42-52) 07/01/24 17:37 Hgb O2 Saturation 85.0 % (95-100) L 07/01/24 17:37 Carboxyhemoglobin 1.2 %THgb (0.4-20.1) 07/01/24 17:37 Methemoglobin 0.9 % (0.4-1.5) 07/01/24 17:37 Total Hemoglobin 13.9 g/dL (14-18) L 07/01/24 17:37 Sodium 136.0 mmol/L (131-143) 07/01/24 17:37 Potassium 3.6 mmol/L (3.5-5.0) 07/01/24 17:37 Glucose 108.0 mg/dL (70-115) 07/01/24 17:37 Ionized Calcium 1.2 mmol/L (1.1-1.4) 07/01/24 17:37 O2 Delivery Device Room air 07/01/24 17:37 FiO2 21.0 % 07/01/24 17:37 Assistant Store Director ID Amh 07/01/24 17:37 Sodium 139 mmol/L (136-145) 07/04/24 05:14 Potassium 4.0 mmol/L (3.5-5.1) 07/04/24 05:14 Chloride 105 mmol/L (98-107) 07/04/24 05:14 Carbon Dioxide 24 mmol/L (22-29) 07/04/24 05:14 Anion Gap 14.0 (5-19) 07/04/24 05:14 BUN 15 mg/dL (8-23) 07/04/24 05:14 Creatinine 0.7 mg/dL (0.7-1.2) 07/04/24 05:14 GFR Calculation 113.2 mL/min (90-130) 07/04/24 05:14 Glucose 114 mg/dL (65-115) 07/04/24 05:14 Estimat Average Glucose 108 07/02/24 06:00 Hemoglobin A1c 5.4 % (4.0-6.0) 07/02/24 06:00 Calculated Osmolality 290 mOsm/kg (285-295) 07/04/24 05:14 Calcium 8.6 mg/dL (8.5-10.5) 07/04/24 05:14 Magnesium 1.8 mg/dL (1.7-2.3) 07/04/24 05:14 Iron 12 ug/dL (59-158) L 07/02/24 06:00 TIBC 208 mcg/dl 07/02/24 06:00 % Saturation 5.7 % (20-50) L 07/02/24 06:00 Unsat Iron Binding 196 ug/dL (112-347) 07/02/24 06:00 Total Bilirubin 0.2 mg/dL (0.15-1.2) 07/04/24 05:14 AST 26 U/L (0-40) 07/04/24 05:14 ALT 24 U/L (0-41) 07/04/24 05:14 Alkaline Phosphatase 66 U/L (40-130) 07/04/24 05:14 Troponin T Baseline 9 ng/L (0-15) 07/01/24 17:33 Troponin T 120 Minute 10.34 ng/L (0-15) 07/01/24 19:38 Delta Troponin T 1.34 ABS# (0-10) 07/01/24 19:38 Troponin T Hi Sens 6Hr 12.57 ng/L (0-15) 07/02/24 00:11 Troponin T Hi Sens 6Hr Delta 3.57 ng/L (0-12) 07/02/24 00:11 NT-Pro-B Natriuret Pep 298 pg/mL (0-125) H 07/01/24 17:33 Total Protein 6.0 g/dL (6.6-8.7) L 07/04/24 05:14 Albumin 3.3 g/dL (3.5-5.2) L 07/04/24 05:14 Globulin 2.7 g/dL (1.3-4.6) 07/04/24 05:14 Triglycerides 25 mg/dL (0-150) 07/03/24 05:54 Triglycerides Cancelled 07/03/24 05:54 Cholesterol 85 mg/dL (0-200) 07/03/24 05:54 Cholesterol Cancelled 07/03/24 05:54 LDL Cholesterol, Calc 40 mg/dL (50-129) L 07/03/24 05:54 LDL Cholesterol, Calc Cancelled 07/03/24 05:54 Total VLDL Cholesterol 5 mg/dL (0-30) 07/03/24 05:54 Total VLDL Cholesterol Cancelled 07/03/24 05:54 HDL Cholesterol 40 mg/dL (60-100) L 07/03/24 05:54 HDL Cholesterol Cancelled 07/03/24 05:54 Cholesterol/HDL Ratio 2.13 mg/dL (1.0-5.00) 07/03/24 05:54 Cholesterol/HDL Ratio Cancelled 07/03/24 05:54 Vitamin B12 789 pg/mL (232-1245) 07/02/24 06:00 Folate 4.3 ng/mL (4.5-32.2) L 07/03/24 05:54 Procalcitonin 0.20 ng/mL (0-0.5) 07/03/24 05:54 Procalcitonin Cancelled 07/03/24 05:54 TSH 1.13 uIU/mL (0.27-4.20) 07/02/24 06:00 Nasal MRSA (PCR) Mrsa detected (Negative) A 07/02/24 18:17 Coronavirus (PCR) Positive (Negative) A 07/01/24 17:31 Influenza A (PCR) Negative (Negative) 07/01/24 17:31 Influenza Type B (PCR) Negative (Negative) 07/01/24 17:31 RSV (PCR) Negative (Negative) 07/01/24 17:31 Vitals Last Vital Signs Temp 98.0 F 07/04/24 12:00 Pulse 71 07/04/24 12:00 Resp 16 07/04/24 12:00 BP 118/70 07/04/24 12:00 Pulse Ox 92 07/04/24 12:00 O2 Del Method Nasal Cannula 07/04/24 12:00 O2 Flow Rate 0 07/04/24 08:11 Discharge Plan Discharge Patient Disposition: Home Condition: Stable Prescriptions: New dexamethasone 6 mg tablet 6 mg PO Q24H Qty: 7 0RF Rx Instructions: for up to 10 days levofloxacin 750 mg tablet 750 mg PO Q24H 5 Days Qty: 5 0RF linezolid 600 mg tablet 600 mg PO Q12H 5 Days Qty: 10 0RF Continued cholecalciferol (vitamin D3) 25 mcg (1,000 unit) capsule 50 mcg PO DAILY loratadine 10 mg capsule 10 mg PO DAILY budesonide 0.5 mg/2 mL Suspension For Nebulization 0.5 mg inhalation DAILY pantoprazole 40 mg tablet,delayed release (DR/EC) 40 mg PO BID Qty: 0 0RF Changed Combivent Respimat 20-100 mcg/actuation mist 2 puff INHALATION DIRECTED 30 Days Qty: 4 0RF Rx Instructions: space evenly during waking hours Discharge Orders: Discharge Order (Routine); Ordered 07/04/24 Ordered By: Danilo Johnson Referrals: Edison Gaines FNP [Primary Care Provider] - 7-10 days Patient Instructions: Opioid Safety Activity Restrictions/Additional Instructions: Continue with Atrovent daily for now. Continue with home inhaler as before. Continue with Combivent daily for instead of as needed. Advised to continue working with incentive spirometry and flutter valve while at home. Advised to continue taking dexamethasone 6 mg for next 7 days. Advised to follow-up with his primary care provider within the next 4 to 7 days. Can take COVID-19 vaccination in 3 months. Advised to continue following social distancing and isolation protocol for next 10 days. Advised to come back to the ER if fever of more than 101 Fahrenheit, more difficulty breathing than usual or requiring higher oxygen supplementation. Milligram antibiotic with Levaquin and linezolid for next 5 days. Please follow-up with a primary care provider within next 1 week. Discharge Attestations Time Spent in Discharge Care*: greater than 30 min Specific Discharge Activities: educating patient, discussing with pcp/other providers, discussing with outpatient case manager/social workers/dc planners, documenting/other paperwork and evaluating patient/reviewing data Status at Discharge: Cognitive status at discharge: cognitively intact , Behavioral status at discharge: cooperative , Functional status at discharge: independent ambulation , Overall status at discharge: patient is back to baseline Quality Metrics Clinical Quality Measures [ No reported AMI, CVA or VTE this stay] Coding Level of Care Code 90312 Total time (in minutes) for Discharge: 60 Diagnoses Hypoxia R09.02 COVID-19 U07.1 Pneumonia J18.9 COPD (chronic obstructive pulmonary disease) J44.9 Tobacco abuse Z72.0
[2024-07-04] MEDS: remdesivir 100 MG in sodium chloride 0.9% (100 ml) 80 ML IV (13:07)
--- NOTE | 2024-07-04 13:36 | PC.NURSE ---
Discharge instructions provided to pt at this time. No questions or concerns voiced at this time. Pt has all his belongings, including money with him. Once Remdesivir finishes, pt will be discharged.
== END 2024-07-04 14:53 | disposition home or self-care (01) | DRG 177 ==
LOC: ER 19:45 → MEDSURG 22:43
PROVIDERS: Admitting Provider Internal Medicine; Emergency Provider Physician Assistant; PCP Nurse Practitioner; Visit Provider Student in an Organized Health Care Education/Training Program
DX: U07.1 COVID-19 (principal); J18.0 Bronchopneumonia, unspecified organism; J96.01 Acute respiratory failure with hypoxia; J44.0 Chronic obstructive pulmonary disease with (acute) lower respiratory infection; J44.1 Chronic obstructive pulmonary disease with (acute) exacerbation; F17.200 Nicotine dependence, unspecified, uncomplicated; R00.0 Tachycardia, unspecified
CPT/HCPCS: 0241U; 36415; 36600; 71046; 71275; 80051; 80053; 80061; 82330; 82607; 82746; 82805; 83036; 83540; 83550; 83735; 83880; 84145; 84443; 84484; 85025; 86403; 93005; 94640; 94664; 94760; 96372; 99285; G0378; J0248; J0456; J0696; J1100; J1650; J2270; J7030; J7050; J7614; J7626; J7644; Q0144

== ENCOUNTER 2024-10-15 08:30 | Outpatient (CLI) | payer MEDICARE, MEDICAID, SELFPAY ==
--- NOTE | 2024-10-15 08:35 | CT_ITS ---
WS: [id number] CT CHEST ANGIOGRAPHY WITH REFORMATS HISTORY: ABNORMAL FINDING ON DIAGNOSTIC IMAGING TECHNIQUE: Contiguous axial images are obtained through the chest during arterial injection of intravenous contrast. Images are reconstructed to evaluate the pulmonary arteries. MIP imaging also reviewed. All CT scans at [facility] use at least one of these dose optimization techniques: automated exposure control; mA and/or kV adjustment per patient size (includes targeted exams where dose is matched to clinical indication); or iterative reconstruction. CONTRAST: Omnipaque 350; 100 mL IV. DLP: 228.18 mGy.cm COMPARISON: 07/01/2024 Good opacification of the pulmonary arteries. No filling defects or pulmonary embolism. Normal size thoracic aorta. Pulmonary artery is slightly dilated suggesting pulmonary hypertension. Mild cardiomegaly. No pericardial or pleural effusions. No pneumonia. Resolved RIGHT middle lobe peribronchial thickening. No residual bronchial wall thickening. Very early mild changes of bronchiectasis in the RIGHT middle lobe. 10 mm RIGHT hilar lymph node. Additional AP window lymph nodes are identified. These lymph nodes were present on the prior study without progression. Mild diffuse esophageal wall thickening. These findings were also present on the prior examination and have not improved. The entire adrenal glands are not included but the visualized portions are negative. Variable attenuation within the periphery of the RIGHT lobe of the liver should be further evaluated. Area of decreased attenuation measures 8 x 14 mm. This was not definitely present on the prior study. Mild thoracic spondylosis. Disc spaces are narrowed. CT/CT angio chest PE protcl [id number] IMPRESSION: 1. No pulmonary embolism. 2. Interval resolution of the previously described bronchial wall thickening i n the RIGHT middle and lower lobes. No pneumonia. 3. Diffuse esophageal wall thickening. Similar to the prior study. Consider up per endoscopy for further evaluation. 4. Area of decreased attenuation in the RIGHT lobe of liver measures 8 x 14 mm . Recommend further evaluation to exclude neoplasm. This may be benign focal fa tty sparing or steatosis. Additional imaging may include RIGHT upper quadrant u ltrasound or CT/MRI with and without contrast protocol for liver mass. 5. Mild cardiomegaly.
[2024-10-15] MEDS: iohexol 350 mg/mL 500 mL Btl (per mL) IV (09:32)
== END 2024-10-15 08:31 | disposition home or self-care (01) ==
PROVIDERS: PCP Nurse Practitioner; Visit Provider Nurse Practitioner
DX: R93.89 Abnormal findings on diagnostic imaging of other specified body structures (principal); K22.89 Other specified disease of esophagus; R93.2 Abnormal findings on diagnostic imaging of liver and biliary tract; I51.7 Cardiomegaly; J47.9 Bronchiectasis, uncomplicated; R59.0 Localized enlarged lymph nodes; M47.894 Other spondylosis, thoracic region; R93.7 Abnormal findings on diagnostic imaging of other parts of musculoskeletal system
CPT/HCPCS: 71275

== ENCOUNTER → 2024-10-25 07:51 | Outpatient (BNVA) | payer MEDICARE, MEDICAID, SELFPAY | PROVIDERS: PCP Nurse Practitioner; Visit Provider Nurse Practitioner Family | DX: Q82.8 Other specified congenital malformations of skin (principal); L72.0 Epidermal cyst; L57.8 Other skin changes due to chronic exposure to nonionizing radiation; X32.XXXA Exposure to sunlight, initial encounter; L81.4 Other melanin hyperpigmentation | CPT/HCPCS: 99213 ==

== ENCOUNTER 2024-10-28 09:11 | Outpatient (CLI) | payer MEDICARE, MEDICAID, SELFPAY ==
--- NOTE | 2024-10-28 09:15 | CT_ITS ---
WS: [id number] CT ABDOMEN WITH AND WITHOUT CONTRAST HISTORY: ABNORMAL FINDINGS ON DX IMAGING OF LIVER BILIARY TRACT Multiphase imaging of the abdomen performed. Oral contrast has not been provided. Coronal and sagittal reformats are submitted. All CT scans at [facility] use at least one of these dose optimization techniques: automated exposure control; mA and/or kV adjustment per patient size (includes targeted exams where dose is matched to clinical indication); or iterative reconstruction. IV CONTRAST: Omnipaque 350; 100 mL IV. Oral contrast: No DLP: 679.39 mGy.cm COMPARISON: 10/15/2024 Lower thorax: Mild dependent changes at the RIGHT lung base. Heart is normal size. Small hiatal hernia. Liver/biliary system: Normal size liver. There is scattered nonenhancing 5 mm nodules in the RIGHT lobe. Area of concern noted on the prior CT in the posterior RIGHT lobe corresponds to a mass with peripheral enhancement. Mass measures 12 x 22 mm and is consistent with a hemangioma. Normal portal vein. Gallbladder: Normal. No gallstones or wall thickening. No pericholecystic fluid. Pancreas: Normal size pancreas and pancreatic duct. No adjacent inflammation. Spleen: Normal size spleen. No mass or infarct. Adrenal glands: Normal. Right kidney: Normal. Left kidney: Normal. Aorta: Mild atherosclerosis with no aneurysm. Normal variant SMA and celiac axis. No occlusions. Lymphadenopathy: None. Free fluid: None. GI tract: Unremarkable. Abdominal wall: Small umbilical hernia contains fat. Visualized osseous structures: Advanced degenerative scoliosis and spondylosis lumbar spine. CT/CT abdomen wo/w con [id number] IMPRESSION: 1. Previously described indeterminate mass in the RIGHT lobe of the liver chloé esponds to a benign hemangioma. 2. There are a few additional nonenhancing small cysts scattered within the RI GHT lobe. 3. Negative gallbladder. 4. Atherosclerosis aorta.
[2024-10-28] MEDS: iohexol 350 mg/mL 500 mL Btl (per mL) IV (10:24)
== END 2024-10-28 09:12 | disposition home or self-care (01) ==
PROVIDERS: PCP Nurse Practitioner; Visit Provider Nurse Practitioner
DX: R93.2 Abnormal findings on diagnostic imaging of liver and biliary tract (principal); R16.0 Hepatomegaly, not elsewhere classified; K76.89 Other specified diseases of liver; I70.0 Atherosclerosis of aorta; R91.8 Other nonspecific abnormal finding of lung field; K44.9 Diaphragmatic hernia without obstruction or gangrene; K42.9 Umbilical hernia without obstruction or gangrene; M41.86 Other forms of scoliosis, lumbar region; M47.896 Other spondylosis, lumbar region
CPT/HCPCS: 74170